=== PATIENT | female | born 1970 | race Two or more races ===

== ENCOUNTER → 2017-01-24 | Outpatient (CLI) | payer OTHER ==
--- NOTE | ~2017-01-24 | MY11 ---
[facility] A Service of [facility] RADIOLOGY TEXT RESULTS PATIENT: PINKY RODRÍGUEZ LOCATION: [facility] : 74 UNIT #: [id number] AGE: [address]: TRINI LIZARRAGA APRN SEX: F ORDER DR: [id number] [facility] [address] [place], [place] [address] [id number] O MR#: [id number] Acc #: [id number] NAME: PINKY RODRÍGUEZ : 1970 SEX: F STUDY DATE/TIME: 01/24/2017 8:31 UNIT: [facility] ROOM: STUDY DESCRIPTION: MY Mammogram Screening Dig [facility] Attending Physician: Trini Lizarraga Aprn Referring Physician: Trini Lizarraga Aprn Ordering Physician: Trini Lizarraga Aprn Primary Care Physician: Trini Lizarraga Aprn MEDICAL IMAGING REPORT This report is preliminary unless electronic signature is present EXAM Screening mammogram, 01/24. INDICATION 46-year-old with no personal or family history of breast cancer. No current complaints. FINDINGS Routine digital screening views of both breasts were obtained. Study was reviewed with an FDA-approved CAD device. No comparison studies. Breast parenchyma shows scattered fibroglandular densities. No suspicious masses or microcalcifications are seen. IMPRESSION Negative mammogram. Routine screen in 1 year is recommended. Patients over the age of 40 are entered into a reminder system with target due date for the next mammogram. A result letter will also be sent to the patient. BIRADS: 1 Negative Dictated by... Addison Lucio Jr., M.D. THIS IS AN ELECTRONICALLY VERIFIED REPORT Addison Lucio Jr., M.D. at 01/26/2017 6:08 AM MAHENDRA/emi TD: 01/25/2017 13:00 [facility] A Service [facility] RADIOLOGY TEXT RESULTS PATIENT: PINKY RODRÍGUEZ LOCATION: [facility] : 74 UNIT #: [id number] AGE: [address]: TRINI LIZARRAGA APRN SEX: F ORDER DR: GRISELDA #: [id number] MEDICAL IMAGING REPORT Page 1 of 1 COPY
== END | disposition home or self-care (01) ==
LOC: CWCC 01-16 12:15
DX: Z12.31 Encounter for screening mammogram for malignant neoplasm of breast (principal)
CPT/HCPCS: G0202